=== PATIENT | male | born 1945 | race Caucasian/White ===

== ENCOUNTER 2017-03-05 16:15 | Inpatient (IN) ==
[2017-03-05] MEDS ORDERED: 0.9 % Sodium Chloride 1,000 ML IVC ONE (16:40)
[2017-03-05 17:20] LABS: Hematocrit 33.1 % (37.5-50.1); Hemoglobin 11.3 g/dL (12.9-16.9); Lymphocytes # 0.4 K/mcL (0.6-4.6); Mean Corpuscular HGB Conc 34.1 g/dL (31.6-35.5); Mean Corpuscular Volume 82.1 fL (83.0-100.0); Nucleated Red Blood Cells 0.4 /100 WBC (0); Platelet Count 293 K/mcL (140-400); Red Blood Count 4.03 M/mcL (4.19-5.50); Red Cell Distribution Width 22.3 % (11.5-14.5)
[2017-03-05 17:25] LABS: INR 1.2; Prothrombin Time 13.5 Seconds (9.4-12.1)
[2017-03-05 17:27] LABS: Activated Partial Thrombo Time 26.6 Seconds (26.0-36.0)
[2017-03-05 17:34] LABS: Alanine Aminotransferase 52 Units/L (0-55); Albumin/Globulin Ratio 1.1 (1.1-2.2); Alkaline Phosphatase 49 Units/L (38-126); Aspartate Amino Transferase 38 Units/L (5-34); BUN/Creatinine Ratio 20 (6-26); Bilirubin,Direct 0.2 mg/dL (0.0-0.5); Bilirubin,Indirect 0.1 mg/dL (0.0-1.2); Bilirubin,Total 0.3 mg/dL (0.2-1.2); Blood Urea Nitrogen 18 mg/dL (8-26); Calcium 8.5 mg/dL (8.6-10.8); Carbon Dioxide 25 mEq/L (19-29); Chloride 104 mEq/L (98-109); Globulin 2.7 g/dL (2.4-3.5); Glucose 127 mg/dL (70-99); Magnesium 1.7 mg/dL (1.6-2.6); Osmolality,Calculated 287 (280-300); Sodium 137 mEq/L (136-145); Total Protein 5.7 g/dL (6.0-8.3); eGFR For African Americans > 60 (> 60); eGFR For Non-African Americans > 60 (> 60)
[2017-03-05] MEDS ORDERED: Potassium Chloride 40 MEQ, Lidocaine 1% 2 ML in D5% in Water 500 ML IVPB ONE (18:04)
[2017-03-05 18:05] LABS: Eosinophils # 1.4 K/mcL (0.0-0.6); Monocytes # 0.2 K/mcL (0.0-1.3); Neutrophils # 2.8 K/mcL (1.6-8.9); Platelet Estimate Normal (Normal)
--- NOTE | 2017-03-05 18:59 | Emergency Department Note ---
Disposition Clinical Impression: Clostridium difficile colitis, Hypokalemia Disposition: Admitted As Inpatient Condition: Good Referrals: NO,PCP [Primary Care Provider] - Forms: ED Satisfaction Letter Nausea/Vomiting/Diarrhea HPI - General Chief complaint: ED Recheck/Abnormal Lab/Rx Stated complaint: C diff Time Seen by Provider: 03/05/17 16:29 Source: patient, family Limitations: no limitations Nursing Notes Reviewed: Yes Vital Signs Reviewed: Yes - History of Present Illness Pt Subjective Complaint: diarrhea - Related Data Home Medications Medication Instructions Recorded Confirmed Multivit-Min/FA/Lycopen/Lutein 1 each PO DAILY 01/30/17 02/13/17 [Men 50 Plus Multivitamin Tab] Capecitabine [Xeloda] 1,000 mg PO QPM 03/05/17 03/05/17 Capecitabine [Xeloda] 1,500 tab PO QAM 03/05/17 03/05/17 Naproxen Sodium [Aleve] 220 mg PO Q12H PRN 03/05/17 03/05/17 Psyllium Husk [Daily Fiber] 0.52 gm PO DAILY 03/05/17 03/05/17 Previous Rx's Medication Instructions Recorded Sucralfate [Carafate] 1 gm PO QID #120 tablet 02/14/17 Ciprofloxacin HCl [Cipro] 500 mg PO BID #14 tablet 02/27/17 metroNIDAZOLE [Flagyl] 500 mg PO TID #21 tablet 02/27/17 Allergies Allergy/AdvReac Type Severity Reaction Status Date / Time ampicillin Allergy Swelling Verified 03/05/17 16:26 of Lip/Tongue/Throat doxycycline Allergy Swelling Verified 03/05/17 16:26 of Lip/Tongue/Throat All systems ED: reviewed and negative except as stated. Constitutional: Denies: fever, chills Gastrointestinal: Reports: diarrhea Past Medical History - Past Medical History Source: patient, old records reviewed, nursing notes reviewed Medical history: Reports: cancer Surgical history: Reports: no surgical history Psychiatric history: Reports: anxiety - Social History Smoking Status: Never smoker Smokeless Tobacco Status: No Alcohol use: Reports: none Drug use: Reports: none Physical Exam - General Limitations: no limitations General appearance: alert, in no apparent distress - Head Head exam: atraumatic, normocephalic, normal inspection - Eye Eye exam: Present: normal appearance, PERRL, EOMI - Expanded Eye Exam Pupils: Left: reactive - ENT ENT exam: normal exam, normal oropharynx, mucous membranes moist - Expanded ENT Exam External ear exam: Present: normal external inspection Mouth exam: Present: normal external inspection Teeth exam: Present: normal inspection Throat exam: Present: normal inspection - Neck Neck exam: Present: normal inspection, full ROM, trachea midline - Chest Chest inspection: Present: normal inspection, symmetric chest wall rise - Respiratory Respiratory exam: Present: normal lung sounds bilaterally - Cardiovascular Cardiovascular exam: Present: regular rate, normal rhythm, normal heart sounds - Abdominal Exam Abdominal exam: Present: soft, Non-Tender. Absent: tenderness, distention, guarding, rebound, rigidity - Extremities Exam Extremities exam: Present: normal inspection, full ROM. Absent: tenderness, pedal edema - Expanded Upper Extremity Exam Shoulder exam: Present: normal inspection, full ROM Arm exam: Present: normal inspection, full ROM Elbow exam: Present: normal inspection, full ROM Forearm/Wrist exam: Present: normal inspection, full ROM Hand exam: Present: normal inspection, full ROM Vascular exam: Normal: capillary refill, radial pulse - Expanded Lower Extremity Exam Hip/Pelvis exam: Present: normal inspection, full ROM Upper leg exam: Present: normal inspection, full ROM Knee exam: Present: normal inspection, full ROM Lower leg exam: Present: normal inspection, full ROM Ankle exam: Present: normal inspection, full ROM Foot/toe exam: Present: normal inspection, full ROM Neurovascular/Tendon exam: Absent: motor deficit, sensory deficit, tendon deficit - Back Exam Back exam: Present: normal inspection, full ROM. Absent: tenderness - Neurological Exam Neurological exam: Present: alert, oriented X3 - Expanded Neurological Exam Patient oriented to: Present: person, place, time Coma Scale Eye Opening: Spontaneous Coma Scale Motor Response: Obeys Commands Coma Scale Verbal Response: Oriented Coma Scale Total: 15 - Psychiatric Psychiatric exam: Present: normal affect, normal mood - Skin Skin exam: Present: warm, dry, intact, normal color Course Vital Signs Temperature 98.0 F 03/05/17 16:26 Pulse Rate 93 03/05/17 16:26 Respiratory Rate 16 03/05/17 16:26 Blood Pressure 127/72 03/05/17 16:26 O2 Sat by Pulse Oximetry 97 03/05/17 16:26 Temperature 98.0 F 03/05/17 16:26 Pulse Rate 93 03/05/17 16:26 Respiratory Rate 16 03/05/17 16:26 Blood Pressure 127/72 03/05/17 16:26 O2 Sat by Pulse Oximetry 97 03/05/17 16:26 Oxygen Delivery Oxygen Delivery Room Air Nausea/Vomiting/Diarrhea - Differential Diagnosis Likely: gastroenteritis, clostridium difficile infection, drug-induced nausea and vomitting, dehydration, bowel obstruction - Medical Records Medical records reviewed: Yes I reviewed the patient's medical records. - Lab Data Lab results reviewed: Yes I reviewed the patient's lab results. Result diagrams: 03/05/17 17:03/05/17 17:09 Lab Results 03/05/17 03/05/17 03/05/17 Range/Units 17: 17: 17:09 WBC 4.8 (4.3-11.1) K/mcL RBC 4.03 L (4.19-5.50) M/mcL Hgb 11.3 L (12.9-16.9) g/dL Hct 33.1 L (37.5-50.1) % MCV 82.1 L (83.0-100.0) fL MCH 28.0 (28.0-33.3) pg MCHC 34.1 (31.6-35.5) g/dL RDW 22.3 H (11.5-14.5) % Plt Count 293 (140-400) K/mcL MPV 9.0 L (9.4-12.4) fL Seg Neutrophils % 58.0 % Lymphocytes % 8.0 % Monocytes % 4.0 % Eosinophils % 30.0 % Neutrophils # 2.8 (1.6-8.9) K/mcL Lymphocytes # 0.4 L (0.6-4.6) K/mcL Monocytes # 0.2 (0.0-1.3) K/mcL Eosinophils # 1.4 H (0.0-0.6) K/mcL Nucleated RBCs/100 WBC 0.4 H (0) /100 WBC Platelet Estimate Normal (Normal) PT 13.5 H (9.4-12.1) Seconds INR 1.2 APTT 26.6 (26.0-36.0) Seconds Sodium 137 (136-145) mEq/L Potassium 3.0 L (3.5-4.5) mEq/L Chloride 104 (98-109) mEq/L Carbon Dioxide 25 (19-29) mEq/L BUN 18 (8-26) mg/dL Creatinine 0.88 (0.72-1.25) mg/dL Est GFR ( Amer) > 60 (> 60) Est GFR (Non-Af Amer) > 60 (> 60) BUN/Creatinine Ratio 20 (6-26) Glucose 127 H (70-99) mg/dL Calculated Osmolality 287 (280-300) Lactic Acid (0.5-2.2) mmol/L Calcium 8.5 L (8.6-10.8) mg/dL Phosphorus 4.0 (2.3-4.7) mg/dL Magnesium 1.7 (1.6-2.6) mg/dL Total Bilirubin 0.3 (0.2-1.2) mg/dL Direct Bilirubin 0.2 (0.0-0.5) mg/dL Indirect Bilirubin 0.1 (0.0-1.2) mg/dL AST 38 H (5-34) Units/L ALT 52 (0-55) Units/L Alkaline Phosphatase 49 (38-126) Units/L Troponin I (0-0.03) ng/mL Serum Total Protein 5.7 L (6.0-8.3) g/dL Albumin 3.0 L (3.5-5.0) g/dL Globulin 2.7 (2.4-3.5) g/dL Albumin/Globulin Ratio 1.1 (1.1-2.2) Blood Type Antibody Screen 03/05/17 03/05/17 03/05/17 Range/Units 17:09 17:09 17:09 WBC (4.3-11.1) K/mcL RBC (4.19-5.50) M/mcL Hgb (12.9-16.9) g/dL Hct (37.5-50.1) % MCV (83.0-100.0) fL MCH (28.0-33.3) pg MCHC (31.6-35.5) g/dL RDW (11.5-14.5) % Plt Count (140-400) K/mcL MPV (9.4-12.4) fL Seg Neutrophils % % Lymphocytes % % Monocytes % % Eosinophils % % Neutrophils # (1.6-8.9) K/mcL Lymphocytes # (0.6-4.6) K/mcL Monocytes # (0.0-1.3) K/mcL Eosinophils # (0.0-0.6) K/mcL Nucleated RBCs/100 WBC (0) /100 WBC Platelet Estimate (Normal) PT (9.4-12.1) Seconds INR APTT (26.0-36.0) Seconds Sodium (136-145) mEq/L Potassium (3.5-4.5) mEq/L Chloride (98-109) mEq/L Carbon Dioxide (19-29) mEq/L BUN (8-26) mg/dL Creatinine (0.72-1.25) mg/dL Est GFR ( Amer) (> 60) Est GFR (Non-Af Amer) (> 60) BUN/Creatinine Ratio (6-26) Glucose (70-99) mg/dL Calculated Osmolality (280-300) Lactic Acid 0.8 (0.5-2.2) mmol/L Calcium (8.6-10.8) mg/dL Phosphorus (2.3-4.7) mg/dL Magnesium (1.6-2.6) mg/dL Total Bilirubin (0.2-1.2) mg/dL Direct Bilirubin (0.0-0.5) mg/dL Indirect Bilirubin (0.0-1.2) mg/dL AST (5-34) Units/L ALT (0-55) Units/L Alkaline Phosphatase (38-126) Units/L Troponin I 0.00 (0-0.03) ng/mL Serum Total Protein (6.0-8.3) g/dL Albumin (3.5-5.0) g/dL Globulin (2.4-3.5) g/dL Albumin/Globulin Ratio (1.1-2.2) Blood Type A POSITIVE Antibody Screen NEGATIVE - Radiology Data Radiology results reviewed: Yes I reviewed the patient's radiology results.
[2017-03-05] MEDS ORDERED: MetroNIDAZOLE 500 MG/100 ML 500 MG/100 ML BAG IVPB ONE (19:15)
[2017-03-05] MEDS ORDERED: Acetaminophen 325 MG TABLET PO PRN (19:26)
[2017-03-05] MEDS ORDERED: Ondansetron 4 MG/2 ML VIAL IVP PRN (19:26)
[2017-03-05] MEDS ORDERED: Naloxone 0.4 MG/ML INJ IVP PRN (19:26)
--- NOTE | 2017-03-05 20:43 | Internal Med History&Physical ---
Date of Encounter: 03/05/17 Time of Encounter: 08:00 Assessment and Plan (1) Clostridium difficile colitis Current visit: Yes Status: Acute Patient with long-standing diarrhea with recent worsening associated with nausea. Tenderness to palpation in the hypogastric region. Labs reveal C. difficile positive. Patient unable to consume by mouth due to extreme nausea and heartburn. Patient will be admitted to inpatient status. Expected to be in the hospital at least 2 midnights. Expected discharge disposition is to home. High risk due to C. difficile infection and unable to take by mouth and the need for intravenous anti-medics and intravenous fluids. Patient will be given intravenous metronidazole as he is unable to tolerate by mouth. Once he is able to tolerate by mouth, daily switch to by mouth Flagyl. Intravenous fluids. Once able to take by mouth, will start probiotics. (2) Hypokalemia Current visit: Yes Status: Acute Replaced in the ER. Monitor and check potassium level in the morning. Check magnesium level. (3) Rectal cancer Current visit: No Status: Chronic Hold chemotherapy as the patient has acute infection. Resumption of chemotherapy when cleared by oncology. (4) Anemia Current visit: Yes Status: Chronic Likely due to chronic blood loss due to his cancer and exacerbated by chemotherapy. We will obtain iron panel, B12 and folic acid levels. Qualifiers: Anemia type: unspecified type Qualified Code(s): D64.9 - Anemia, unspecified Internal Medicine - H&P: HPI Chief complaint: Diarrhea Admitted From: Emergency Dept Plans for Post Hospital Care: Home History of present illness: Mr. Barrow is a 71 year old male with a history of rectal cancer that was diagnosed in December 2016 who presented to the emergency department due to diarrhea and nausea. Patient states that he has had diarrhea for over one to 2 years. During the dilation for diarrhea, he was found to have rectal carcinoma. He follows up with oncology regularly. He has recently been started on chemotherapy and radiation last month. 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 As the patient continued to have diarrhea which got worse over the last week, he presented to his oncologist office on 02/27/2017. The diarrhea was felt to be likely related to radiation proctitis. However, C. difficile was ordered. Due to the holiday weekend, there was a delay in testing. His results are positive for C. difficile. Hence, he was contacted by oncologist office today to present to the emergency department. The patient states that he has been nauseous and unable to eat any food over the past 4-5 days. He reports that he has been having multiple bowel movements every day and needs to use the restroom 3-4 times an hour. He reports some blood in the stool. He reports the diarrhea as loose and watery without any pus or mucus. He denies any pain at his anus while having bowel movements. However, he complains of 3/10 cramping pain in the lower abdomen in the middle without any radiation that has been happening with his bowel movements. He denies any vomiting, fever or chills. He denies any chest pain, palpitations, feeling lightheaded. He reports some heartburn. Past Med Surg Social Fam HX - Past Medical History Attestation: Yes The following information was validated with the patient. Source: patient Medical history: cancer (Rectosigmoid invasive adenocarcinoma) Psychiatric history: anxiety - Past Surgical History Surgical History: non-contributory, other (Head and neck injury in 2003; colonoscopy in December 2016) - Social History Smoking Status: Never smoker Smokeless Tobacco Status: No Alcohol use: none Drug use: none Occupational status: retired Current living situation: Home, With Family Activity Level: Independent ambulation Recent Out of Country Travel Within the Last 8 Weeks: No Exposure or Possible Exposure to Illness During Travel: No - Family History Father Hx Family Cardiac Disorders: Yes Sister Hx Family Cancer: Yes (Lung cancer, rectal cancer) Son Hx Family Cancer: Yes (Testicular cancer) Internal Medicine - H&P: Meds Multivit-Min/FA/Lycopen/Lutein [Men 50 Plus Multivitamin Tab] 1 each PO DAILY [History] Sucralfate [Carafate] 1 gm PO QID #120 tablet 02/14/17 [Rx] Ciprofloxacin HCl [Cipro] 500 mg PO BID #14 tablet 02/27/17 [Rx] metroNIDAZOLE [Flagyl] 500 mg PO TID #21 tablet 02/27/17 [Rx] Capecitabine [Xeloda] 1,000 mg PO QPM 03/05/17 [History] Capecitabine [Xeloda] 1,500 tab PO QAM 03/05/17 [History] Naproxen Sodium [Aleve] 220 mg PO Q12H PRN 03/05/17 [History] Psyllium Husk [Daily Fiber] 0.52 gm PO DAILY 03/05/17 [History] Allergies ampicillin Allergy (Verified 03/05/17 16:26) Swelling of Lip/Tongue/Throat doxycycline Allergy (Verified 03/05/17 16:26) Swelling of Lip/Tongue/Throat TINGLING All Systems PM: A 10-system review of systems was performed and is negative for pertinent findings except as documented above in the HPI. Review of systems: 10 systems have been reviewed and are negative except as mentioned in the history of present illness - Constitutional Vitals: Temp Pulse Resp BP Pulse Ox 98.0 F 60 16 126/79 100 03/05/17 16:26 03/05/17 18:41 03/05/17 19:46 03/05/17 19:46 03/05/17 18:41 Exam: Gen.: Sitting in bed. Mild to moderate distress. Eyes: Pupils equal, round and reactive to light. Extraocular muscles intact. ENT: Dry mucous membranes. No oropharyngeal erythema or discharge. Chest: Clear to auscultation bilaterally. No adventitious sounds present. CVS: First and second heart sounds present. No murmurs, rubs or gallops. Abdomen: Soft, tenderness to palpation in the hypogastric region without any guarding, rebound tenderness or rigidity; nondistended. Bowel sounds present. No hepatosplenomegaly. Skin: No decubitus ulcers appreciated. LIFE TEACHER: No focal neuro deficits present. Psychiatric: Alert, awake and oriented to time, place and person. Lymphatic system: No lymphadenopathy appreciated Internal Med - H&P Results - Labs CBC & Chem 7: 03/05/17 17:09 03/05/17 17:09 Labs: C. difficile test from 03/01/2017 is positive
[2017-03-05] MEDS: 0.9 % Sodium Chloride 1,000 ML IVC SCH (20:59)
[2017-03-05] MEDS: Sucralfate 1 GM TABLET PO SCH (22:50)
[2017-03-05] MEDS: *HR* Heparin 5,000 UNIT/ML VIAL SQ SCH (23:51)
[2017-03-06] MEDS: MetroNIDAZOLE 500 MG/100 ML 500 MG/100 ML BAG IVPB SCH ×4 (03:02→23:06)
[2017-03-06 05:12] LABS: Basophils % 0.7 %; Eosinophils # 1.5 K/mcL (0.0-0.6); Eosinophils % 25.3 %; Immature Granulocytes % 0.5 % (0-4); Lymphocytes # 0.4 K/mcL (0.6-4.6); Lymphocytes % 5.9 %; Mean Corpuscular HGB Conc 33.3 g/dL (31.6-35.5); Mean Corpuscular Hemoglobin 27.8 pg (28.0-33.3); Mean Corpuscular Volume 83.3 fL (83.0-100.0); Mean Platelet Volume 9.4 fL (9.4-12.4); Monocytes # 0.7 K/mcL (0.0-1.3); Monocytes % 11.8 %; Neutrophils # 3.3 K/mcL (1.6-8.9); Nucleated Red Blood Cells 0.3 /100 WBC (0); Platelet Count 272 K/mcL (140-400); Red Cell Distribution Width 22.5 % (11.5-14.5); Segmented Neutrophils % 55.8 %
[2017-03-06 05:32] LABS: % Iron Saturation 9 % (20-55); Alanine Aminotransferase 40 Units/L (0-55); Albumin 2.8 g/dL (3.5-5.0); Albumin/Globulin Ratio 1.3 (1.1-2.2); Alkaline Phosphatase 47 Units/L (38-126); Aspartate Amino Transferase 27 Units/L (5-34); BUN/Creatinine Ratio 16 (6-26); Bilirubin,Total 0.5 mg/dL (0.2-1.2); Blood Urea Nitrogen 13 mg/dL (8-26); Carbon Dioxide 23 mEq/L (19-29); Chloride 111 mEq/L (98-109); Globulin 2.2 g/dL (2.4-3.5); Glucose 97 mg/dL (70-99); Iron 28 mcg/dL (65-175); Magnesium 1.7 mg/dL (1.6-2.6); Osmolality,Calculated 290 (280-300); Potassium 3.1 mEq/L (3.5-4.5); Sodium 140 mEq/L (136-145); Transferrin 222 mg/dL (174-364); eGFR For African Americans > 60 (> 60); eGFR For Non-African Americans > 60 (> 60)
[2017-03-06 05:33] LABS: Anisocytosis 2+ (Not Present); Platelet Estimate Normal (Normal)
[2017-03-06 05:34] LABS: Microcytosis Present (Not Present)
[2017-03-06 05:51] LABS: Ferritin 31 ng/ml (22-275)
[2017-03-06] MEDS ORDERED: Potassium Chloride 40 MEQ, Lidocaine 1% 2 ML in D5% in Water 500 ML IVPB ONE (08:23)
--- NOTE | 2017-03-06 09:26 | Palliative - Consult Note ---
Date of Encounter: 03/06/17 Time of Encounter: 08:40 - Assessment and Plan (1) Nausea alone Current Visit: Yes Status: Acute Assessment and plan: Currently only nausea. The patient denies any actual vomiting. Quite concerned about the nausea however as it makes it very difficult for him to get fluid in, and he is getting and seems to be causing more diarrhea. Some aspects of the nausea may very well be anxiety related as certain odors set him off as well as just concerned in general about the C. difficile. Try scheduling Zofran and making it available or when necessary basis. If this helps. Also written down for some Ativan when necessary anxiety which may also be helpful in the end for the nausea. We will watch closely. (2) Dehydration Current Visit: Yes Status: Acute Assessment and plan: Secondary to poor by mouth intake due to nausea, as well as profuse diarrhea secondary to C. difficile. Patient is getting IV fluid. The patient is trying to take in clear liquid diet. (3) Goals of care, counseling/discussion Current Visit: Yes Status: Acute Assessment and plan: Patient wishes to be DNR CCA, DNI. After a discussion the patient stated that he wished to have his DNR CCA Band-Aid to include DNI. States that he has discussed this with his sons. Regards to medical power of city attorney the patient admits that he has not done this. Nor has he done his advanced directives or living will. He does indicate that he would like to get these done he is in the hospital and I will put in a social work consult for this. At this time he has not decided who he wishes to nominated as his medical power of city attorney. I did discuss with him the importance of discussing his wishes with his medical power of city attorney. He assures me that he will do so. with regards to his medical goals of care. He wishes to get over the C. difficile and then resume his chemotherapy and radiation therapy. Was to be as active as possible during this period. Sugars me that he will eat once the diarrhea starts calming down. (4) Anxiety about health Current Visit: Yes Status: Acute Assessment and plan: The patient is extremely concerned at this time about his fluid status with regards to dehydration area the patient has lost a pound a day for the last 10 days. Is very concerning to him. 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 Make Ativan available on a when necessary basis. As the patient does not really wish to be sedated. (5) Clostridium difficile colitis Current Visit: Yes Status: Acute Assessment and plan: Integument antibiotics per hospitalist team. (6) Rectal cancer Current Visit: No Status: Chronic Assessment and plan: I will abide by the cancer center for stage III rectal cancer no metastases are noted. he is getting radiation and chemotherapy. Does wish to continue to get this. Palliative-CN HPI - Data of Consult Patient: new to practice Requesting Physician: Yeimy Granda Primary Care Provider: PCP NO - Consult Narrative Palliative Care/Comfort Measures: Palliative care Reason for consult: goals of care persistant nausea History of present illness: Mr. Barrow is a 71 year old male Who has been in generally extremely good health with the exception of a concussion approximately 14 years ago. In having frequent loose stools for the last year to 2 years and during a workup for this was discovered to have rectal cancer. The patient reports pain only when he has crampy bowel movements and it is very short-lived although it is quite intense gets up to about a 6 or 7 if not a little bit higher I very crampy in nature throughout his abdomen but goes away very shortly after having had the bowel movement. It is so short- lived he does not feel there is any need for any medication for it. Also been having nausea for the last couple of weeks but this got particularly bad a week ago Saturday when area got markedly worse. The patient was seen by oncology and a C. difficile was ordered. A came back positive for C. difficile and the patient came in the hospital for dehydration. The patient states he has had a 10 pound weight loss over the last 10 days. He feels like he does want to eat, however seem to trigger off his nausea smell of certain kinds of dog food and Percocet toast it also related to eating. The patient does feel like he wants to eat but tends to set off the diarrhea which has caused him do not really want to eat. She denies any shortness of breath fever or chills as described above. Patient is looking forward to getting through this and resuming his chemotherapy and radiation therapy. CC: Yeimy Granda Diarrhea, C. difficile Past Med Surg Social Fam HX - Past Medical History Medical history: cancer Psychiatric history: anxiety - Past Surgical History Surgical History: non-contributory, other - Social History Smoking Status: Never smoker Smokeless Tobacco Status: No Alcohol use: none Drug use: none - Family History Father Adopted: [place]: DREW Family Member Ethnicity: Non- Living Status: Age at : 83 Cause of : CHF Hx Family Cardiac Disorders: Yes ([place]) Hx Family Respiratory Disorders: No Hx Family Cancer: No Hx Family GI Disorders: No Hx Family Genitourinary Disorders: No Hx Family Endocrine Disorder: No Hx Family Musculoskeletal Disorders: No Hx Family Neuromuscular Disorders: No Hx Family Neurologic Disorders: No Hx Family HEENT Disorders: No Hx Family Autoimmune Disorders: No Hx Family Reproductive Disorders: No Hx Family Psychosocial Disorders: No Hx Family Medical Disorders: No Sister Hx Family Cancer: Yes (Lung cancer, rectal cancer) Son Hx Family Cancer: Yes (Testicular cancer) Medications and Allergies Multivit-Min/FA/Lycopen/Lutein [Men 50 Plus Multivitamin Tab] 1 each PO DAILY [History] Sucralfate [Carafate] 1 gm PO QID #120 tablet 02/14/17 [Rx] Ciprofloxacin HCl [Cipro] 500 mg PO BID #14 tablet 02/27/17 [Rx] metroNIDAZOLE [Flagyl] 500 mg PO TID #21 tablet 02/27/17 [Rx] Capecitabine [Xeloda] 1,000 mg PO QPM 03/05/17 [History] Capecitabine [Xeloda] 1,500 tab PO QAM 03/05/17 [History] Naproxen Sodium [Aleve] 220 mg PO Q12H PRN 03/05/17 [History] Psyllium Husk [Daily Fiber] 0.52 gm PO DAILY 03/05/17 [History] Allergies ampicillin Allergy (Verified 03/05/17 16:26) Swelling of Lip/Tongue/Throat doxycycline Allergy (Verified 03/05/17 16:26) Swelling of Lip/Tongue/Throat TINGLING - Constitutional Constitutional ROS PAL: decreased appetite, anorexia, weight loss - EENT Eyes: no discharge, no pain Ears: no ear discharge, no ear pain Ears, nose, mouth, throat: no facial pain, no hoarseness, no lip swelling, no mouth pain - Cardiovascular Cardiovascular ROS: no chest pain, no chest pain at rest, no chest pain with activity - Respiratory Respiratory: no cough, no dyspnea, no hemoptysis - Gastrointestinal Gastrointestinal: abdominal pain, cramping, diarrhea, nausea, no vomiting - Genitourinary Genitourinary ROS male: no urinary frequency, no urinary hesitancy, no urinary incontinence - Musculoskeletal Musculoskeletal ROS IM: no arthralgias, no back pain, no joint swelling - Integumentary ROS Integumentary: no skin pain, no skin ulcer, no sores - Neurological Neurological ROS: no confusion, no convulsions, no disequilibrium, no dizziness , no focal weakness, no frequent falls - Psychiatric Psychiatric general PM: anxiety (About the diarrhea.), change in appetite, no depression, no difficulty concentrating, no homicidal ideation, no suicidal ideation - Endocrine Endocrine IM: other (The patient has no trouble diabetes or thyroid problems.) Palliative Care-Exam - Constitutional Vitals: Temp Pulse Resp BP Pulse Ox 98.0 F 63 18 121/75 99 03/06/17 08:11 03/06/17 08:11 03/06/17 08:11 03/06/17 08:11 03/06/17 08:11 General appearance: Present: no acute distress, thin - Head Head Exam: Present: atraumatic, normal inspection - Eye Eye exam: Present: EOMI, normal appearance, PERRL, scleral icterus - ENT ENT exam: Present: mucous membranes moist - Neck Neck exam: Present: full ROM - Respiratory Respiratory exam: Present: CTAB - Cardiovascular Cardiovascular exam: Present: RRR - GI/Abdominal Exam GI/Abdominal exam: Present: hyperactive bowel sounds, soft. Absent: tenderness - Extremities Exam Extremities exam: Absent: pedal edema, tenderness - Neurological Exam Neurological exam: Present: alert, oriented X3 - Psychiatric Psychiatric exam: Present: normal affect, normal mood. Absent: agitated, anxious (The patient is not overtly anxious about this, however he does relate that he has him is worried when he was on a ship in the [place] that he thought might go down.) Internal Medicine - CN: Reslt - Labs CBC & Chem 7: 03/06/17 04:33 03/06/17 04:33 Labs: Short CBC 03/06/17 Range/Units 04:33 WBC 5.9 (4.3-11.1) K/mcL Hgb 10.0 L (12.9-16.9) g/dL Hct 30.0 L (37.5-50.1) % Plt Count 272 (140-400) K/mcL Neutrophils # 3.3 (1.6-8.9) K/mcL BMP 03/06/17 04:33 Sodium 140 Potassium 3.1 L Chloride 111 H Carbon Dioxide 23 BUN 13 Creatinine 0.80 Glucose 97 Calcium 8.0 L Liver Function 03/06/17 Range/Units 04:33 Total Bilirubin 0.5 (0.2-1.2) mg/dL AST 27 (5-34) Units/L ALT 40 (0-55) Units/L Alkaline Phosphatase 47 (38-126) Units/L Albumin 2.8 L (3.5-5.0) g/dL - ABG Interpretation ABG results: PT/INR, D-dimer PT 13.5 Seconds (9.4-12.1) H 03/05/17 17:09 Consult Discharge Plan - Plan Referrals: NO,PCP [Primary Care Provider] - Palliative Quality Palliative Quality: Screen for Code Status: Yes, Screen for Goals of Care: Yes, Screen for Pain: Yes, If Pain Regimen Started, Initiate Bowel Regimen: NA, Screen for Nausea/Vomitting: Yes (Patient has C. difficile) Code Status: 03/05/17 21:00 Resuscitation Status: Active [RES] Routine Comment: Resuscitation Status: DNR-Comfort Care-Arrest Resuscitation Status: Active [RES] Routine Resuscitation Status: [id number] Comment:
[2017-03-06] MEDS ORDERED: *HR* LORazepam 2 MG/ML VIAL IVP PRN (09:31)
[2017-03-06] MEDS: Ondansetron 4 MG/2 ML VIAL IVP PRN ×2 (09:56→21:21)
[2017-03-06] MEDS: Sucralfate 1 GM TABLET PO SCH ×4 (09:58→21:17)
[2017-03-06] MEDS: *HR* Heparin 5,000 UNIT/ML VIAL SQ SCH ×3 (10:03→21:16)
--- NOTE | 2017-03-06 11:09 | Internal Med Progress Note ---
Date of Encounter: 03/06/17 Time of Encounter: 11:08 - Assessment and plan (1) Malnutrition Current Visit: Yes Status: Acute Assessment and plan: Continue supplements Tractor Mechanic recommendation noted (2) Clostridium difficile colitis Current Visit: Yes Status: Acute Assessment and plan: COntinue Flagyl IV Continue close monitoring (3) Hypokalemia Current Visit: Yes Status: Acute Assessment and plan: Replaced, continue to monitor (4) Anemia Current Visit: Yes Status: Chronic Assessment and plan: Chronic, stable Qualifiers: Anemia type: unspecified type Qualified Code(s): D64.9 - Anemia, unspecified (5) Dehydration Current Visit: Yes Status: Acute Assessment and plan: Continue IVF, encourage liberal fluid intake (6) Nausea alone Current Visit: Yes Status: Acute Assessment and plan: Continue antiemetics (7) Rectal cancer Current Visit: Yes Status: Chronic Assessment and plan: Hold chemo/radio for now Will consult oncology prn - Subjective Interval history: Seen and evaluated at bedside Reports still having BM< although the last two were formed and mucoid Still nauseated, no vomiting Refused TPN or any nutritional invasive intervention No fever, no leukocytosis, clinically stable - Constitutional Vitals: Temp Pulse Resp BP Pulse Ox 98.0 F 63 18 121/75 99 03/06/17 08:11 03/06/17 08:11 03/06/17 08:11 03/06/17 08:11 03/06/17 08:11 General appearance: Present: cachectic, A&O X 3, pleasant, no acute distress - Head Head exam: Present: atraumatic, normocephalic - Eye Eye exam: Present: PERRL, conjuntiva pink, sclera anicteric Pupils: Present: PERRL - Neck Neck exam general surgery: Present: supple, trachea midline. Absent: lymphadenopathy - Respiratory Respiratory exam: Present: CTAB. Absent: accessory muscle use, rales, rhonchi, wheezes - Cardiovascular Cardiovascular exam: Present: RRR, +S1, +S2. Absent: diastolic murmur, gallop, rubs, systolic murmur - GI/Abdominal GI/Abdominal exam: Present: normal bowel sounds, soft, no peritoneal signs. Absent: distended, tenderness - Extremities Exam Extremities exam: Present: warm, radial pulses palpable and symetrical. Absent : calf tenderness, cyanotic, pedal edema - Neurological Exam Neurological exam: Present: alert, CN II-XII intact, oriented X3, no focal deficits. Absent: pronater drift, facial droop, speech deficit - Skin Skin exam: Present: dry, intact Internal Medicine: Result - Labs CBC & Chem 7: 03/06/17 04:33 03/06/17 04:33 Labs: Short CBC 03/06/17 Range/Units 04:33 WBC 5.9 (4.3-11.1) K/mcL Hgb 10.0 L (12.9-16.9) g/dL Hct 30.0 L (37.5-50.1) % Plt Count 272 (140-400) K/mcL Neutrophils # 3.3 (1.6-8.9) K/mcL BMP 03/06/17 04:33 Sodium 140 Potassium 3.1 L Chloride 111 H Carbon Dioxide 23 BUN 13 Creatinine 0.80 Glucose 97 Calcium 8.0 L Liver Function 03/06/17 Range/Units 04:33 Total Bilirubin 0.5 (0.2-1.2) mg/dL AST 27 (5-34) Units/L ALT 40 (0-55) Units/L Alkaline Phosphatase 47 (38-126) Units/L Albumin 2.8 L (3.5-5.0) g/dL - ABG Interpretation ABG results: PT/INR, D-dimer PT 13.5 Seconds (9.4-12.1) H 03/05/17 17:09 Consult Discharge Plan - Plan Referrals: NO,PCP [Primary Care Provider] -
[2017-03-06] MEDS: Ondansetron 4 MG/2 ML VIAL IVP SCH ×2 (16:09→23:05)
[2017-03-06] MEDS: 0.9 % Sodium Chloride 1,000 ML IVC SCH ×2 (16:11→21:08)
[2017-03-06] MEDS: Famotidine 20 MG/2 ML VIAL IVP SCH (23:06)
[2017-03-07] MEDS: *HR* Heparin 5,000 UNIT/ML VIAL SQ SCH ×3 (05:24→22:26)
[2017-03-07] MEDS: Famotidine 20 MG/2 ML VIAL IVP SCH ×2 (06:31→17:34)
[2017-03-07] MEDS: 0.9 % Sodium Chloride 1,000 ML IVC SCH (06:31)
[2017-03-07] MEDS: Sucralfate 1 GM TABLET PO SCH ×4 (09:08→22:23)
[2017-03-07] MEDS: Ondansetron 4 MG/2 ML VIAL IVP SCH (09:08)
[2017-03-07] MEDS: MetroNIDAZOLE 500 MG/100 ML 500 MG/100 ML BAG IVPB SCH (09:34)
--- NOTE | 2017-03-07 10:55 | Palliative Progress Note ---
Date of Encounter: 03/07/17 Time of Encounter: 09:10 - Assessment and plan (1) Nausea alone Current Visit: Yes Status: Acute Assessment and plan: Much improved on current medications. We will continue to leave scheduled medications in place as are still available. Patient feels that this is helping. (2) Dehydration Current Visit: Yes Status: Acute Assessment and plan: Getting IV fluid, patient is also trying to take by mouth clear liquids. Is keeping these down and this does seem to be helping him. (3) Goals of care, counseling/discussion Current Visit: Yes Status: Acute Assessment and plan: Patient wishes to be DNR CCA DNI, as this change was accomplished yesterday. Patient's ultimate goal is to continue getting his chemotherapy and radiation therapy for his rectal cancer. Patient does wish to have help with medical power of commercial attorney and advanced directives, I have consulted with social work and discussed this with the social worker palliative care for his floor. This will be addressed before he leaves the hospital. (4) Anxiety about health Current Visit: Yes Status: Acute Assessment and plan: She has a great deal of anxiety about his overall problem. Ativan is written for if needed. Patient understands that is there if he needs it, and he has not needed it thus far. His nausea is getting better his anxiety is dropping down. Continue to watch. (5) Clostridium difficile colitis Current Visit: Yes Status: Acute Assessment and plan: She is being treated for this, plan per hospitalist team. (6) Rectal cancer Current Visit: Yes Status: Chronic Assessment and plan: She is followed at the cancer center for both radiation and chemotherapy. The plan is to resume this as soon as he came in per oncology, after the C. difficile has cleared. - Time Spent With Patient Total time spent is greater than 50% in coordination of care (as documented) at patient's floor/unit and/or counseling patient: - Subjective Interval history: The patient reports his nausea is much better. Area continues to be fairly bad although it may be slowing down now for the first time. Patient is trying to take in fluids by mouth, and is trying to be compliant with the clear liquid diet. - Constitutional Vitals: Abnormal lab results RBC 3.60 M/mcL (4.19-5.50) L 03/06/17 04:33 Hgb 10.0 g/dL (12.9-16.9) L 03/06/17 04:33 Hct 30.0 % (37.5-50.1) L 03/06/17 04:33 MCH 27.8 pg (28.0-33.3) L 03/06/17 04:33 RDW 22.5 % (11.5-14.5) H 03/06/17 04:33 Lymphocytes # 0.4 K/mcL (0.6-4.6) L 03/06/17 04:33 Eosinophils # 1.5 K/mcL (0.0-0.6) H 03/06/17 04:33 Nucleated RBCs/100 WBC 0.3 /100 WBC (0) H 03/06/17 04:33 Anisocytosis 2+ (Not Present) A 03/06/17 04:33 Microcytosis Present (Not Present) A 03/06/17 04:33 PT 13.5 Seconds (9.4-12.1) H 03/05/17 17:09 Potassium 3.1 mEq/L (3.5-4.5) L 03/06/17 04:33 Chloride 111 mEq/L (98-109) H 03/06/17 04:33 Calcium 8.0 mg/dL (8.6-10.8) L 03/06/17 04:33 Iron 28 mcg/dL (65-175) L 03/06/17 04:33 % Saturation 9 % (20-55) L 03/06/17 04:33 Serum Total Protein 5.0 g/dL (6.0-8.3) L 03/06/17 04:33 Albumin 2.8 g/dL (3.5-5.0) L 03/06/17 04:33 Globulin 2.2 g/dL (2.4-3.5) L 03/06/17 04:33 General appearance: Present: no acute distress - Respiratory Respiratory exam: Present: CTAB - Cardiovascular Cardiovascular exam: Present: RRR - GI/Abdominal GI/Abdominal exam: Present: hyperactive bowel sounds, soft. Absent: tenderness - Extremities Exam Extremities exam: Present: normal inspection. Absent: pedal edema, tenderness - Neurological Exam Neurological exam: Present: alert, oriented X3 - Psychiatric Psychiatric exam: Absent: agitated, anxious - Skin Skin exam: Present: dry, warm Palliative Quality Palliative Quality: Screen for Code Status: Yes, Screen for Goals of Care: Yes, Screen for Pain: Yes, If Pain Regimen Started, Initiate Bowel Regimen: NA, Screen for Nausea/Vomitting: Yes (Patient has C. difficile) Code Status: 03/05/17 21:00 Resuscitation Status: Active [RES] Routine Comment: Resuscitation Status: DNR-Comfort Care-Arrest Resuscitation Status: Active [RES] Routine Comment: Resuscitation Status: [id number] - Labs CBC & Chem 7: 03/06/17 04:33 03/06/17 04:33 - ABG Interpretation ABG results: PT/INR, D-dimer PT 13.5 Seconds (9.4-12.1) H 03/05/17 17:09 Consult Discharge Plan - Plan Referrals: NO,PCP [Primary Care Provider] -
--- NOTE | 2017-03-07 11:57 | Internal Med Progress Note ---
Date of Encounter: 03/07/17 Time of Encounter: 11:57 - Assessment and plan (1) Malnutrition Current Visit: Yes Status: Acute Assessment and plan: Continue supplements Conservation Biology Professor recommendation noted (2) Clostridium difficile colitis Current Visit: Yes Status: Acute Assessment and plan: Change Flagyl to oral. Check CBC and chemistry in the morning prior to discharge. Continue close monitoring (3) Hypokalemia Current Visit: Yes Status: Acute Assessment and plan: Replaced, continue to monitor (4) Anemia Current Visit: Yes Status: Chronic Assessment and plan: Chronic, stable Qualifiers: Anemia type: unspecified type Qualified Code(s): D64.9 - Anemia, unspecified (5) Dehydration Current Visit: Yes Status: Acute Assessment and plan: Continue IV fluids, encourage liberal oral fluid intake (6) Nausea alone Current Visit: Yes Status: Acute Assessment and plan: Continue antiemetics (7) Rectal cancer Current Visit: Yes Status: Chronic Assessment and plan: Hold chemo/radio for now Will consult oncology prn - Subjective Interval history: Seen and evaluated at bedside Reports still having BM unwitnessed. Reports improvement in nausea patient still not vomiting. Patient is afebrile and clinically stable. We will plan to change antibiotics to oral and if Tolerated patient to be discharged home in the morning. - Constitutional Vitals: Temp Pulse Resp BP Pulse Ox 97.9 F 64 16 105/66 100 03/07/17 07:36 03/07/17 07:36 03/07/17 07:36 03/07/17 07:36 03/07/17 07:36 General appearance: Present: cachectic, A&O X 3, pleasant, no acute distress - Head Head exam: Present: atraumatic, normocephalic - Eye Eye exam: Present: PERRL, conjuntiva pink, sclera anicteric Pupils: Present: PERRL - Neck Neck exam general surgery: Present: supple, trachea midline. Absent: lymphadenopathy - Respiratory Respiratory exam: Present: CTAB. Absent: accessory muscle use, rales, rhonchi, wheezes - Cardiovascular Cardiovascular exam: Present: RRR, +S1, +S2. Absent: diastolic murmur, gallop, rubs, systolic murmur - GI/Abdominal GI/Abdominal exam: Present: normal bowel sounds, soft, no peritoneal signs. Absent: distended, tenderness - Extremities Exam Extremities exam: Present: warm, radial pulses palpable and symetrical. Absent : calf tenderness, cyanotic, pedal edema - Neurological Exam Neurological exam: Present: alert, CN II-XII intact, oriented X3, no focal deficits. Absent: pronater drift, facial droop, speech deficit - Skin Skin exam: Present: dry, intact Internal Medicine: Result - Labs CBC & Chem 7: 03/06/17 04:33 03/06/17 04:33 - ABG Interpretation ABG results: PT/INR, D-dimer PT 13.5 Seconds (9.4-12.1) H 03/05/17 17:09 Consult Discharge Plan - Plan Referrals: NO,PCP [Primary Care Provider] -
[2017-03-07] MEDS ORDERED: Ondansetron ODT 4 MG TAB.RAPDIS SL PRN (11:58)
[2017-03-07] MEDS: metroNIDAZOLE 500 MG TABLET PO SCH ×2 (15:15→22:24)
[2017-03-07] MEDS ORDERED: Famotidine 20 MG/2 ML VIAL IVP SCH (21:56)
[2017-03-08 05:21] LABS: Basophils % 1.1 %; Eosinophils # 0.5 K/mcL (0.0-0.6); Eosinophils % 14.5 %; Hematocrit 27.6 % (37.5-50.1); Hemoglobin 9.4 g/dL (12.9-16.9); Immature Granulocytes % 0.3 % (0-4); Lymphocytes # 0.4 K/mcL (0.6-4.6); Lymphocytes % 10.3 %; Mean Corpuscular HGB Conc 34.1 g/dL (31.6-35.5); Mean Corpuscular Hemoglobin 28.1 pg (28.0-33.3); Mean Corpuscular Volume 82.4 fL (83.0-100.0); Mean Platelet Volume 9.3 fL (9.4-12.4); Monocytes # 0.6 K/mcL (0.0-1.3); Monocytes % 17.9 %; Platelet Count 259 K/mcL (140-400); Red Blood Count 3.35 M/mcL (4.19-5.50); Red Cell Distribution Width 23.5 % (11.5-14.5); Segmented Neutrophils % 55.9 %
[2017-03-08 05:28] LABS: BUN/Creatinine Ratio 5 (6-26); Blood Urea Nitrogen 4 mg/dL (8-26); Carbon Dioxide 25 mEq/L (19-29); Chloride 108 mEq/L (98-109); Glucose 88 mg/dL (70-99); Osmolality,Calculated 284 (280-300); Potassium 2.6 mEq/L (3.5-4.5); Sodium 139 mEq/L (136-145); eGFR For African Americans > 60 (> 60); eGFR For Non-African Americans > 60 (> 60)
[2017-03-08] MEDS: *HR* Heparin 5,000 UNIT/ML VIAL SQ SCH ×3 (05:49→20:48)
[2017-03-08 06:08] LABS: Anisocytosis 2+ (Not Present); Microcytosis Present (Not Present); Platelet Estimate Normal (Normal)
[2017-03-08] MEDS: Famotidine 20 MG/2 ML VIAL IVP SCH (09:27)
[2017-03-08] MEDS: metroNIDAZOLE 500 MG TABLET PO SCH ×3 (09:28→20:48)
[2017-03-08] MEDS: Sucralfate 1 GM TABLET PO SCH ×4 (09:28→20:48)
--- NOTE | 2017-03-08 11:18 | Palliative Progress Note ---
Date of Encounter: 03/08/17 Time of Encounter: 11:16 - Assessment and plan (1) Anxiety about health Current Visit: Yes Status: Acute Assessment and plan: Dry Cleaning Supervisor support for spiritual distress. Lorazepam as needed for uncontrolled anxiety. (2) Clostridium difficile colitis Current Visit: Yes Status: Acute Assessment and plan: Mr. Barrow was switched to oral metronidazole yesterday. Plan per hospitalist. (3) Nausea alone Current Visit: Yes Status: Acute Assessment and plan: Zofran 8mg SL as needed. Last dose was last night. (4) Malnutrition Current Visit: Yes Status: Acute Assessment and plan: Currently on clear liquid diet with protein supplements per dietitian. (5) Goals of care, counseling/discussion Current Visit: Yes Status: Acute Assessment and plan: Discharge plan of care in place when medically stable. Mr. Barrow will follow with oncology services as an outpatient. hvac services professional following for advanced directives. Symptoms managed with current treatment plan and spiritual support. The palliative care team will follow at a distance pending clinical course. - Time Spent With Patient Total time spent is greater than 50% in coordination of care (as documented) at patient's floor/unit and/or counseling patient: - Subjective Interval history: Mr. Barrow is up in the room and takes himself back and forth to the bathroom. He denies pain or shortness of breath. Mr. Barrow continues to have loose BMs with frequent trips to the bathroom. His appetite is poor and he is only consuming liquids. - Constitutional Vitals: Abnormal lab results WBC 3.6 K/mcL (4.3-11.1) L 03/08/17 04:50 RBC 3.35 M/mcL (4.19-5.50) L 03/08/17 04:50 Hgb 9.4 g/dL (12.9-16.9) L 03/08/17 04:50 Hct 27.6 % (37.5-50.1) L 03/08/17 04:50 MCV 82.4 fL (83.0-100.0) L 03/08/17 04:50 RDW 23.5 % (11.5-14.5) H 03/08/17 04:50 MPV 9.3 fL (9.4-12.4) L 03/08/17 04:50 Lymphocytes # 0.4 K/mcL (0.6-4.6) L 03/08/17 04:50 Nucleated RBCs/100 WBC 0.3 /100 WBC (0) H 03/06/17 04:33 Anisocytosis 2+ (Not Present) A 03/08/17 04:50 Microcytosis Present (Not Present) A 03/08/17 04:50 PT 13.5 Seconds (9.4-12.1) H 03/05/17 17:09 Potassium 2.6 mEq/L (3.5-4.5) L 03/08/17 04:50 BUN 4 mg/dL (8-26) L 03/08/17 04:50 BUN/Creatinine Ratio 5 (6-26) L 03/08/17 04:50 Calcium 8.0 mg/dL (8.6-10.8) L 03/08/17 04:50 Iron 28 mcg/dL (65-175) L 03/06/17 04:33 % Saturation 9 % (20-55) L 03/06/17 04:33 Serum Total Protein 5.0 g/dL (6.0-8.3) L 03/06/17 04:33 Albumin 2.8 g/dL (3.5-5.0) L 03/06/17 04:33 Globulin 2.2 g/dL (2.4-3.5) L 03/06/17 04:33 General appearance: Present: cooperative, no acute distress, thin - Eye Eye exam: Present: EOMI, PERRL - Respiratory Respiratory exam: Absent: accessory muscle use, respiratory distress - Cardiovascular Cardiovascular exam: Present: RRR - GI/Abdominal GI/Abdominal exam: Present: hyperactive bowel sounds. Absent: tenderness - Extremities Exam Extremities exam: Present: normal inspection. Absent: pedal edema - Neurological Exam Neurological exam: Present: alert, oriented X3, no focal deficits - Psychiatric Psychiatric exam: Present: anxious - Skin Skin exam: Present: dry, warm Palliative Quality Palliative Quality: Screen for Code Status: Yes, Screen for Goals of Care: Yes, Screen for Pain: Yes, If Pain Regimen Started, Initiate Bowel Regimen: NA, Screen for Nausea/Vomitting: Yes (Patient has C. difficile) Code Status: 03/05/17 21:00 Resuscitation Status: Active [RES] Routine Comment: Resuscitation Status: DNR-Comfort Care-Arrest Resuscitation Status: Active [RES] Routine Comment: Resuscitation Status: [id number] - Labs CBC & Chem 7: 03/08/17 04:50 03/08/17 04:50 Labs: Laboratory Results - last 24 hr 03/08/17 03/08/17 04:50 04:50 WBC 3.6 L RBC 3.35 L Hgb 9.4 L Hct 27.6 L MCV 82.4 L MCH 28.1 MCHC 34.1 RDW 23.5 H Plt Count 259 MPV 9.3 L Immature Gran % 0.3 Seg Neutrophils % 55.9 Lymphocytes % 10.3 Monocytes % 17.9 Eosinophils % 14.5 Basophils % 1.1 Neutrophils # 2.0 Lymphocytes # 0.4 L Monocytes # 0.6 Eosinophils # 0.5 Basophils # 0.0 Platelet Estimate Normal Anisocytosis 2+ A Microcytosis Present A Sodium 139 Potassium 2.6 L Chloride 108 Carbon Dioxide 25 BUN 4 L Creatinine 0.78 Est GFR ( Amer) > 60 Est GFR (Non-Af Amer) > 60 BUN/Creatinine Ratio 5 L Glucose 88 Calculated Osmolality 284 Calcium 8.0 L - ABG Interpretation ABG results: PT/INR, D-dimer PT 13.5 Seconds (9.4-12.1) H 03/05/17 17:09 Consult Discharge Plan - Plan Referrals: NO,PCP [Primary Care Provider] -
--- NOTE | 2017-03-08 12:17 | Internal Med Progress Note ---
Date of Encounter: 03/08/17 Time of Encounter: 12:15 - Assessment and plan (1) Malnutrition Current Visit: Yes Status: Acute Assessment and plan: MOderate-Severe, protein-calorie malnutriton Continue supplements Pig Lead Melter Helper recommendation noted (2) Clostridium difficile colitis Current Visit: Yes Status: Acute Assessment and plan: Conitnue po Flagyl, improving (3) Hypokalemia Current Visit: Yes Status: Acute Assessment and plan: Replaced, continue to monitor (4) Anemia Current Visit: Yes Status: Chronic Assessment and plan: Chronic, stable Qualifiers: Anemia type: unspecified type Qualified Code(s): D64.9 - Anemia, unspecified (5) Dehydration Current Visit: Yes Status: Acute Assessment and plan: D/C IVF encourage liberal oral fluid intake (6) Nausea alone Current Visit: Yes Status: Acute Assessment and plan: Continue antiemetics (7) Rectal cancer Current Visit: Yes Status: Chronic Assessment and plan: Hold chemo/radio for now Will consult oncology prn - Subjective Interval history: Seen and evaluated at bedside Patient extremely emotional about his relationship status with [facility] Administrative And Program Specialist in room at time of visit He has no new medical complains and actually feels like he got better in the past 24 hrs Labs reveal hypokalemia, being replaced he is tolerating flagyl po Will advance diet, replace K, anticipate d/c a.m - Constitutional Vitals: Temp Pulse Resp BP Pulse Ox 98.5 F 62 16 144/78 100 03/08/17 11:17 03/08/17 11:17 03/08/17 11:17 03/08/17 11:17 03/08/17 11:17 General appearance: Present: cachectic, A&O X 3, pleasant, no acute distress - Head Head exam: Present: atraumatic, normocephalic - Eye Eye exam: Present: PERRL, conjuntiva pink, sclera anicteric Pupils: Present: PERRL - Neck Neck exam general surgery: Present: supple, trachea midline. Absent: lymphadenopathy - Respiratory Respiratory exam: Present: CTAB. Absent: accessory muscle use, rales, rhonchi, wheezes - Cardiovascular Cardiovascular exam: Present: RRR, +S1, +S2. Absent: diastolic murmur, gallop, rubs, systolic murmur - GI/Abdominal GI/Abdominal exam: Present: normal bowel sounds, soft, no peritoneal signs. Absent: distended, tenderness - Extremities Exam Extremities exam: Present: warm, radial pulses palpable and symetrical. Absent : calf tenderness, cyanotic, pedal edema - Neurological Exam Neurological exam: Present: alert, CN II-XII intact, oriented X3, no focal deficits. Absent: pronater drift, facial droop, speech deficit - Skin Skin exam: Present: dry, intact Internal Medicine: Result - Labs CBC & Chem 7: 03/08/17 04:50 03/08/17 13:56 Labs: Short CBC 03/08/17 Range/Units 04:50 WBC 3.6 L (4.3-11.1) K/mcL Hgb 9.4 L (12.9-16.9) g/dL Hct 27.6 L (37.5-50.1) % Plt Count 259 (140-400) K/mcL Neutrophils # 2.0 (1.6-8.9) K/mcL BMP 03/08/17 04:50 Sodium 139 Potassium 2.6 L Chloride 108 Carbon Dioxide 25 BUN 4 L Creatinine 0.78 Glucose 88 Calcium 8.0 L - ABG Interpretation ABG results: PT/INR, D-dimer PT 13.5 Seconds (9.4-12.1) H 03/05/17 17:09 Consult Discharge Plan - Plan Referrals: NO,PCP [Primary Care Provider] -
[2017-03-08] MEDS: Famotidine 20 MG TABLET PO SCH (16:15)
[2017-03-09] MEDS: *HR* Heparin 5,000 UNIT/ML VIAL SQ SCH ×2 (05:07→14:53)
[2017-03-09] MEDS: Famotidine 20 MG TABLET PO SCH ×2 (06:46→09:20)
[2017-03-09] MEDS: Sucralfate 1 GM TABLET PO SCH ×3 (06:46→12:44)
[2017-03-09] MEDS: metroNIDAZOLE 500 MG TABLET PO SCH (09:20)
[2017-03-09 11:42] VITALS: BP 124/74
--- NOTE | 2017-03-09 12:27 | Discharge Summary ---
Date of Encounter: 03/09/17 Time of Encounter: 12:22 - Discharge Diagnosis (1) Malnutrition Priority: Secondary Status: Chronic (2) Clostridium difficile colitis Priority: Primary Status: Acute (3) Hypokalemia Priority: Primary Status: Acute (4) Anemia Priority: Secondary Status: Chronic Qualifiers: Anemia type: unspecified type Qualified Code(s): D64.9 - Anemia, unspecified (5) Dehydration Priority: Primary Status: Resolved (6) Nausea alone Priority: Primary Status: Resolved (7) Rectal cancer Priority: Secondary Status: Chronic - Discharge Medications Prescriptions: Ondansetron ODT [Zofran ODT] 8 mg SL Q6HR PRN #15 tab.rapdis PRN Reason: Nausea And Vomiting Potassium Chloride 20 meq PO BID #30 tab.er.prt Whey Protein Isolate [Beneprotein] 1 each PO TIDWM #90 powd.pack Home Medications: Multivit-Min/FA/Lycopen/Lutein [Men 50 Plus Multivitamin Tab] 1 each PO DAILY [History] Sucralfate [Carafate] 1 gm PO QID #120 tablet 02/14/17 [Rx] metroNIDAZOLE [Flagyl] 500 mg PO TID #21 tablet 02/27/17 [Rx] Capecitabine [Xeloda] 1,000 mg PO QPM 03/05/17 [History] Capecitabine [Xeloda] 1,500 tab PO QAM 03/05/17 [History] Naproxen Sodium [Aleve] 220 mg PO Q12H PRN 03/05/17 [History] Ondansetron ODT [Zofran ODT] 8 mg SL Q6HR PRN #15 tab.rapdis 03/09/17 [Rx] Potassium Chloride 20 meq PO BID #30 tab.er.prt 03/09/17 [Rx] Whey Protein Isolate [Beneprotein] 1 each PO TIDWM #90 powd.pack 03/09/17 [Rx] metroNIDAZOLE [Flagyl] 500 mg PO TID tablet 03/09/17 [Rx] Allergies/Adverse Reactions: Allergies ampicillin Allergy (Verified 03/05/17 16:26) Swelling of Lip/Tongue/Throat doxycycline Allergy (Verified 03/05/17 16:26) Swelling of Lip/Tongue/Throat TINGLING Date of admission: 03/05/17 19:26 Primary care physician: PCP NO Consults: 03/05/17 21:00 Consult to Palliative Care [CONS] Routine Comment: Consulting Provider: Palliative Care Tracie Reason for Consult: Health care proxy; Rectal cancer Call Completed: No 03/06/17 09:20 Consult to Custom Harvester [CONS] Stat Reason for SW Consult: mpoa and advanced directives, please assist Discharging clinician: Luis Alberto Alicea Anticipated date of discharge: 03/09/17 - Patient Status Disposition: Home, Self-Care Condition: Good Functional capacity at discharge: independent ambulation Overall status at discharge: patient is progressing back to baseline - Discharge Instructions Follow Up With: NO,PCP [Primary Care Provider] - - Diet and Activity Activity: resume usual activities as tolerated Diet: other (Mechanically soft, chopped, advance diet as tolerated), regular diet Interval History: See below Hospital course: Mr. Barrow is a 71 year old male with rectal CA on radiation and chemo He was admitted for management of mild C.diff colitis and poor oral intake He also has moderate-severe protein-calori malnutrition He was unable to tolerate medications po hence his admission He has been taking his Flagly po for the past 24 hrs without nausea or vomiting He continues to have hypokalemia, possibly from his acute on chronic diarrhea Patient's investigations were normal through this admission except hypokalemia He is clinically stable to be discharged home after receiving potassium supplementation today He has follow up with Oncology on Saturday he will be discharged to complete 10 days of Flagyl and will check Chem on Saturday for follow up and adjustment or discontinuation of potassium supplements prn He also has been discharged on protein supplement and lactobacillus for his chronic diarrhea He was asked about option for TPN during this admission and declined Plan of care discussed, verbalized understanding - Time Spent with Patient Total time spent providing and/or coordinating discharge services: Less than 30 minutes - Constitutional Vitals: Temp Pulse Resp BP Pulse Ox 97.9 F 63 17 124/74 100 03/09/17 11:38 03/09/17 11:38 03/09/17 11:38 03/09/17 11:38 03/09/17 11:38 General appearance: Present: cachectic, A&O X 3, pleasant, no acute distress - Head Head exam: Present: atraumatic, normocephalic - Eye Eye exam: Present: PERRL, conjuntiva pink, sclera anicteric Pupils: Present: PERRL - Neck Neck exam general surgery: Present: supple, trachea midline. Absent: lymphadenopathy - Respiratory Respiratory exam: Present: CTAB. Absent: accessory muscle use, rales, rhonchi, wheezes - Cardiovascular Cardiovascular exam: Present: RRR, +S1, +S2. Absent: diastolic murmur, gallop, rubs, systolic murmur - GI/Abdominal GI/Abdominal exam: Present: normal bowel sounds, soft, no peritoneal signs. Absent: distended, tenderness - Extremities Exam Extremities exam: Present: warm, radial pulses palpable and symetrical. Absent : calf tenderness, cyanotic, pedal edema - Neurological Exam Neurological exam: Present: alert, CN II-XII intact, oriented X3, no focal deficits. Absent: pronater drift, facial droop, speech deficit - Skin Skin exam: Present: dry, intact
[2017-03-09] MEDS ORDERED: 0.9 % Sodium Chloride 250 ML ONE (12:58)
== END 2017-03-09 17:10 | disposition home or self-care (01) | DRG 371 ==
LOC: EMEROO 16:15 → 3BNU 16:15 → SUATTDRO 19:26 → 3BNU 20:22
PROVIDERS: ADMIT Internal Medicine Sleep Medicine; ATTEND Internal Medicine